=== PATIENT | male | born 1995 | race Asian ===

== ENCOUNTER 2022-02-05 04:30 | Emergency (ER) | payer BC, OTHER | END 2022-02-05 05:18 | disposition home or self-care (01) | LOC: CSHERS 04:30 | DX: R10.13 Epigastric pain (principal); F17.210 Nicotine dependence, cigarettes, uncomplicated; E66.9 Obesity, unspecified; Z68.45 Body mass index [BMI] 70 or greater, adult; Z87.19 Personal history of other diseases of the digestive system | CPT/HCPCS: 99283 ==